=== PATIENT | male | born 1970 | race Caucasian/White ===

== ENCOUNTER 2017-07-19 13:05 | Emergency (ER) | payer OTHER ==
[~2017-07-19] VITALS: Ht 177.8 cm; Wt 104.3 kg
[~2017-07-19 13:05] MED LIST: ACYCLOVIR 400400 M1 PO; AMOXIL 875 MG875 M1 PO; AUGMENTIN 875875 M1 PO; AUGMENTIN 875875 MG PO; BACTRIM DS TAB1 EACH PO; DOXYCYCLINE 10100 M1 PO; FLOXIN OTI0.3 %/5 M1 OT; LISINOPRIL20 MG PO; MUPIROCIN TOP; NOHOMEMEDICATIONS; NORCO 5-325 TA1 EACH PO; OSELB75 PO; PERCOCET 7.5-31 EACH; PRINIVIL20 MG PO; ZOFRAN4 MG PO
[2017-07-19 13:52] LABS: HEMATOCRIT 46.7 % (42.0-52.0); MCH 33.3 pg (26.0-34.0); MCHC 34.2 g/dL (28.0-37.0); MCV 97.5 fL (80.0-100.0); NUCLEATED RBCS 0 /100WBC; PLATELET COUNT* 171 thou/uL (150-400); RBC 4.79 mil/uL (4.50-6.00); RDW-CV 14.3 % (10.5-14.5)
[2017-07-19 13:59] LABS: ANION GAP 15 mmol/L (7-16); BUN 25 mg/dL (7-18); CALCIUM 9.2 mg/dL (8.5-10.1); CHLORIDE 98 mmol/L (98-107); CO2 21 mmol/L (21-32); CREATININE 1.7 mg/dL (0.6-1.3); GLUCOSE 101 mg/dL (70-99); POTASSIUM 4.3 mmol/L (3.5-5.1); SODIUM 134 mmol/L (136-145)
[2017-07-19 14:10] LABS: ALBUMIN 4.1 g/dL (3.4-5.0); ALKALINE PHOSPHATASE 103 U/L (46-116); LIPASE 135 U/L (73-393); SGOT 36 U/L (15-37); SGPT 56 U/L (30-65); TOTAL BILIRUBIN 0.7 mg/dL (<0.1-1.0); TOTAL PROTEIN 8.2 g/dL (6.4-8.2); TROPONIN-I LEVEL <0.06 ng/mL (<0.06)
[2017-07-19 15:06] LABS: URINE BILIRUBIN NEGATIVE (Negative); URINE BLOOD TRACE (Negative); URINE CLARITY CLEAR; URINE COLOR YELLOW; URINE GLUCOSE-RANDOM NEGATIVE (Negative); URINE KETONES NEGATIVE (Negative); URINE LEUKOCYTES-REFLEX NEGATIVE (Negative); URINE NITRITE-REFLEX NEGATIVE (Negative); URINE PROTEIN 2+ (Negative); URINE SPECIFIC GRAVITY 1.025 (1.005-1.030); URINE UROBILINOGEN 0.2 E.U./dl (0.2-1.0)
[2017-07-19 15:14] LABS: AMP/METHAMP Negative (Negative); BARBITURATES Negative (Negative); BENZODIAZEPINES Negative (Negative); COCAINE Negative (Negative); METHADONE Negative (Negative); OPIATES Negative (Negative); PCP Negative (Negative); THC POSITIVE (Negative)
[2017-07-19 15:14] LABS: ABSOLUTE LYMPHOCYTES 0.2 thou/uL (0.8-5.3); ABSOLUTE MONOCYTES 0.1 thou/uL (0.0-1.2); ABSOLUTE NEUTROPHILS 7.8 thou/uL (1.6-8.1)
[2017-07-19 15:17] LABS: MACROCYTES Occasional; PLATELET ESTIMATE ADEQUATE
[2017-07-19 15:19] LABS: POLYCHROMASIA Occasional
[2017-07-19 15:21] LABS: BACTERIA-REFLEX None Seen /HPF (None Seen); CASTS None Seen /LPF (None Seen); SQUAMOUS 4-10 Moderate /LPF (0-3); URINE RBC 0-2 Rare /HPF (0-2)
[2017-07-19 15:22] LABS: CRYSTALS None Seen /LPF (None Seen); URINE WBC-REFLEX 0-5 Rare /HPF (0-5)
--- NOTE | 2017-07-19 15:31 | EKG ---
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
[2017-07-19 16:56] VITALS: BP 147/102
== END 2017-07-19 15:36 | disposition home or self-care (01) ==
LOC: M.ERS 13:05
PROVIDERS: Physician Assistant
DX: I10 Essential (primary) hypertension (principal); R50.9 Fever, unspecified; R94.2 Abnormal results of pulmonary function studies; F17.210 Nicotine dependence, cigarettes, uncomplicated; Z98.890 Other specified postprocedural states; Z85.47 Personal history of malignant neoplasm of testis

== ENCOUNTER 2018-02-03 07:02 | Inpatient (IN) | payer OTHER ==
[~2018-02-03] VITALS: Ht 177.8 cm; Wt 108.9 kg
[2018-02-03 07:15] VITALS: BP 167/106
[2018-02-03] MEDS ORDERED: SPIRONOLACTONE25 MG PO (07:19)
[2018-02-03] MEDS ORDERED: BLOOD PRESSURE MED (07:20)
[2018-02-03 07:29] LABS: URINE BILIRUBIN NEGATIVE (Negative); URINE BLOOD 1+ (Negative); URINE CLARITY CLEAR; URINE COLOR YELLOW; URINE GLUCOSE-RANDOM NEGATIVE (Negative); URINE KETONES NEGATIVE (Negative); URINE LEUKOCYTES-REFLEX NEGATIVE (Negative); URINE PROTEIN 2+ (Negative); URINE SPECIFIC GRAVITY 1.025 (1.005-1.030); URINE UROBILINOGEN 0.2 E.U./dl (0.2-1.0)
[2018-02-03 07:30] LABS: URINE NITRITE-REFLEX POSITIVE (Negative)
[2018-02-03 07:34] LABS: BACTERIA-REFLEX >30 Many /HPF (None Seen); SQUAMOUS 0-3 Few /LPF (0-3); URINE RBC 3-10 Few /HPF (0-2); URINE WBC-REFLEX 6-15 Few /HPF (0-5)
[2018-02-03 07:35] LABS: CASTS None Seen /LPF (None Seen); CRYSTALS None Seen /LPF (None Seen); MUCUS None Seen strn/LPF (None Seen)
[2018-02-03 07:54] LABS: HEMATOCRIT 42.6 % (42.0-52.0); HEMOGLOBIN 14.8 gm/dL (14.0-18.0); MCH 33.2 pg (26.0-34.0); MCHC 34.7 g/dL (28.0-37.0); MCV 95.7 fL (80.0-100.0); MPV 6.8 fl. (7.2-11.1); NUCLEATED RBCS 0 /100WBC; PLATELET COUNT* 192 thou/uL (150-400); RBC 4.45 mil/uL (4.50-6.00); RDW-CV 14.1 % (10.5-14.5); WBC 7.2 thou/uL (4.0-11.0)
[2018-02-03 07:59] LABS: ANION GAP 14 mmol/L (7-16); BUN 15 mg/dL (7-18); CALCIUM 8.9 mg/dL (8.5-10.1); CHLORIDE 98 mmol/L (98-107); CO2 21 mmol/L (21-32); CREATININE 1.7 mg/dL (0.6-1.3); GLUCOSE 148 mg/dL (70-99); POTASSIUM 3.8 mmol/L (3.5-5.1); SODIUM 133 mmol/L (136-145)
[2018-02-03 08:12] LABS: ALBUMIN 3.2 g/dL (3.4-5.0); ALKALINE PHOSPHATASE 107 U/L (46-116); LIPASE 182 U/L (73-393); SGOT 32 U/L (15-37); SGPT 48 U/L (30-65); TOTAL BILIRUBIN 0.4 mg/dL (<0.1-1.0); TOTAL PROTEIN 7.1 g/dL (6.4-8.2); TROPONIN-I LEVEL <0.06 ng/mL (<0.06)
[2018-02-03 08:19] LABS: INFLUENZA A ANTIGEN None Detected (None Detect); INFLUENZA B ANTIGEN None Detected (None Detect)
[2018-02-03 08:38] LABS: ABSOLUTE EOSINOPHILS 0.1 thou/uL (0.0-0.7); ABSOLUTE LYMPHOCYTES 0.2 thou/uL (0.8-5.3); ABSOLUTE NEUTROPHILS 6.8 thou/uL (1.6-8.1); PLATELET ESTIMATE ADEQUATE
[2018-02-03 09:44] VITALS: BP 148/89
[2018-02-03 10:00] VITALS: BP 136/93
[2018-02-03] MEDS ORDERED: NORVASC10 MG PO (12:00)
[2018-02-03] MEDS ORDERED: CARDURA2 MG PO (12:00)
[2018-02-03 15:35] VITALS: BP 147/95
[2018-02-03 20:00] VITALS: BP 109/56; BP 138/91
[2018-02-03 22:00] LABS: AMP/METHAMP Negative (Negative); BARBITURATES Negative (Negative); BENZODIAZEPINES Negative (Negative); COCAINE Negative (Negative); METHADONE Negative (Negative); OPIATES Negative (Negative); PCP Negative (Negative); THC POSITIVE (Negative)
[2018-02-04 04:08] LABS: HEMATOCRIT 39.9 % (42.0-52.0); HEMOGLOBIN 13.7 gm/dL (14.0-18.0); MCH 33.5 pg (26.0-34.0); MCHC 34.3 g/dL (28.0-37.0); MCV 97.6 fL (80.0-100.0); MPV 7.5 fl. (7.2-11.1); RBC 4.08 mil/uL (4.50-6.00); RDW-CV 14.6 % (10.5-14.5); WBC 9.2 thou/uL (4.0-11.0)
[2018-02-04 04:30] LABS: ALBUMIN 2.7 g/dL (3.4-5.0); CALCIUM 8.1 mg/dL (8.5-10.1); CREATININE 1.5 mg/dL (0.6-1.3); MAGNESIUM 1.4 mg/dL (1.8-2.4); POTASSIUM 3.9 mmol/L (3.5-5.1); TOTAL BILIRUBIN 0.7 mg/dL (<0.1-1.0); TOTAL PROTEIN 5.9 g/dL (6.4-8.2)
[2018-02-04 09:00] VITALS: BP 117/89
--- NOTE | 2018-02-04 14:49 | EKG ---
[place] [address] ELECTROCARDIOGRAM REPORT Name: SARA CHAVEZ Room: [address] ADM IN M.R.#: [id number] Admission: 02/03/18 Attend Phys: Vera Grissom MD Discharge: Date of : 72 Report #: [id number] THIS REPORT FOR: //name// [facility] ED Test Date: 2018-02-03 Test Time: 07:30:10 Pat Name: SARA CHAVEZ Department: Room: [facility] Gender: M Director Life: Savana THOMAS : 1970 Requested By: Cachorro Heath Order Number: [id number] MD: Ta Freire Measurements Intervals [place] Rate: 139 P: 0 HI: 138 QRS: 48 QRSD: 85 T: 22 QT: 276 QTc: 420 Interpretive Statements Sinus tachycardia Abnormal R-wave progression, late transition Minimal ST elevation, lateral leads Compared to ECG 07/19/2017 13:21:47 ST (T wave) deviation now present Electronically Signed On 02-04-2018 14:49:41 PURCHASING ASSISTANT by Ta Freire [email or web address] <ELECTRONICALLY SIGNED> By: Ta Freire MD, [facility] 02/04/18 1449 0730 0730 Ta Freire MD, [facility] /EPI
--- NOTE | 2018-02-04 14:54 | EKG ---
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
[2018-02-04 16:36] VITALS: BP 112/61
[2018-02-04 20:20] VITALS: BP 128/78
[2018-02-05 05:26] LABS: HEMATOCRIT 40.1 % (42.0-52.0); HEMOGLOBIN 13.7 gm/dL (14.0-18.0); MCH 33.6 pg (26.0-34.0); MCHC 34.2 g/dL (28.0-37.0); MCV 98.2 fL (80.0-100.0); MPV 7.8 fl. (7.2-11.1); RBC 4.08 mil/uL (4.50-6.00); RDW-CV 14.1 % (10.5-14.5)
[2018-02-05 05:34] LABS: ALBUMIN 2.8 g/dL (3.4-5.0); CALCIUM 8.5 mg/dL (8.5-10.1); CREATININE 1.5 mg/dL (0.6-1.3); POTASSIUM 3.4 mmol/L (3.5-5.1); TOTAL BILIRUBIN 0.3 mg/dL (<0.1-1.0); TOTAL PROTEIN 6.8 g/dL (6.4-8.2)
[2018-02-05 09:00] VITALS: BP 130/88
[2018-02-05] MEDS ORDERED: MACROBID 100 M100 M2 PO (09:32)
[2018-02-05] MEDS ORDERED: LISINOPRIL20 MG PO (09:34)
[2018-02-05 11:39] VITALS: BP 130/88
[2018-02-05] MEDS ORDERED: NICOTINE PATCH1 EAC2 TRANSDERM (12:01)
[2018-02-05] MEDS ORDERED: ENOXAPARIN40 MG/0.1 SUBQ (12:02)
[2018-02-05] MEDS ORDERED: LEVSIN0.125 MG PO (12:05)
[2018-02-08 04:09] LABS: ADENOVIRUS Negative (Negative); INFLUENZA A Negative (Negative); INFLUENZA B Negative (Negative); METAPNEUMOVIRUS Negative (Negative); PARAINFLUENZA 1 Negative (Negative); PARAINFLUENZA 2 Negative (Negative); PARAINFLUENZA 3 Negative (Negative); RHINOVIRUS Negative (Negative); RSV A Negative (Negative); RSV B Negative (Negative)
== END 2018-02-05 12:25 | disposition home or self-care (01) | DRG 682 ==
LOC: M.ERS 07:02 → M.TBA-ER 08:49 → M.3W 08:49
PROVIDERS: Emergency Medicine Emergency Medical Services; ADMIT Internal Medicine
DX: N17.9 Acute kidney failure, unspecified (principal); R65.11 Systemic inflammatory response syndrome (SIRS) of non-infectious origin with acute organ dysfunction; N39.0 Urinary tract infection, site not specified; Z94.81 Bone marrow transplant status; E44.1 Mild protein-calorie malnutrition; I10 Essential (primary) hypertension; F17.210 Nicotine dependence, cigarettes, uncomplicated; R00.0 Tachycardia, unspecified; Z79.899 Other long term (current) drug therapy; Z23 Encounter for immunization; Z95.0 Presence of cardiac pacemaker; Z85.47 Personal history of malignant neoplasm of testis; Z68.34 Body mass index [BMI] 34.0-34.9, adult

== ENCOUNTER 2019-08-10 03:14 | Emergency (ER) | payer OTHER ==
[~2019-08-10] VITALS: Ht 180.3 cm; Wt 104.3 kg
[~2019-08-10 03:14] MED LIST changes: +BLOOD PRESSURE MED; +CARDURA2 MG PO; +ENOXAPARIN40 MG/0.1 SUBQ; +LEVSIN0.125 MG PO; +MACROBID 100 M100 M2 PO; +NICOTINE PATCH1 EAC2 TRANSDERM; +NORVASC10 MG PO; +SPIRONOLACTONE25 MG PO
[2019-08-10 04:19] LABS: BE -4.4 mmol/L (-2 to +3); PCO2 28.3 mmHg (35.0-45.0); pH 7.431 (7.340-7.450)
[2019-08-10 04:20] LABS: PO2 146.6 mmHg (75.0-100.0)
[2019-08-10 04:31] LABS: HEMATOCRIT 41.2 % (42.0-52.0); HEMOGLOBIN 14.5 gm/dL (14.0-18.0); MCH 34.5 pg (26.0-34.0); MCHC 35.1 g/dL (28.0-37.0); MCV 98.2 fL (80.0-100.0); NUCLEATED RBCS 0 /100WBC; PLATELET COUNT* 136 thou/uL (150-400); RBC 4.19 mil/uL (4.50-6.00); RDW-CV 13.8 % (10.5-14.5)
[2019-08-10 04:52] LABS: ALBUMIN 3.1 g/dL (3.4-5.0); CALCIUM 7.9 mg/dL (8.5-10.1); CREATININE 1.6 mg/dL (0.6-1.3); MAGNESIUM 1.5 mg/dL (1.8-2.4); POTASSIUM 3.5 mmol/L (3.5-5.1); TOTAL BILIRUBIN 0.6 mg/dL (<0.1-1.0); TOTAL PROTEIN 6.7 g/dL (6.4-8.2)
[2019-08-10 05:58] LABS: URINE BILIRUBIN NEGATIVE (Negative); URINE BLOOD 2+ (Negative); URINE CLARITY SL CLOUDY; URINE COLOR YELLOW; URINE GLUCOSE-RANDOM NEGATIVE (Negative); URINE KETONES NEGATIVE (Negative); URINE LEUKOCYTES-REFLEX 1+ (Negative); URINE NITRITE-REFLEX NEGATIVE (Negative); URINE PROTEIN 2+ (Negative); URINE SPECIFIC GRAVITY >= 1.030 (1.005-1.030); URINE UROBILINOGEN 0.2 E.U./dl (0.2-1.0)
[2019-08-10 06:19] LABS: BACTERIA-REFLEX >30 Many /HPF (None Seen); CASTS None Seen /LPF (None Seen); CRYSTALS None Seen /LPF (None Seen); MUCUS 0-3 Light strn/LPF (None Seen); SQUAMOUS 0-3 Few /LPF (0-3); URINE RBC 0-2 Rare /HPF (0-2); URINE WBC-REFLEX 6-15 Few /HPF (0-5)
[2019-08-10 06:21] LABS: ABSOLUTE LYMPHOCYTES 0.7 thou/uL (0.8-5.3); ABSOLUTE MONOCYTES 0.2 thou/uL (0.0-1.2); ABSOLUTE NEUTROPHILS 7.1 thou/uL (1.6-8.1); PLATELET ESTIMATE DECREASED
[2019-08-10] MEDS ORDERED: ZPAK PO (06:32)
[2019-08-10 06:39] VITALS: BP 131/74
== END 2019-08-10 06:41 | disposition home or self-care (01) ==
LOC: M.ERS 03:14
PROVIDERS: Personal Emergency Response Attendant
DX: J06.9 Acute upper respiratory infection, unspecified (principal); Z20.828 Contact with and (suspected) exposure to other viral communicable diseases; R19.7 Diarrhea, unspecified; I10 Essential (primary) hypertension; F17.210 Nicotine dependence, cigarettes, uncomplicated

== ENCOUNTER 2020-04-01 15:14 | Inpatient (IN) | payer OTHER ==
[~2020-04-01] VITALS: Ht 180.3 cm; Wt 111.1 kg
--- NOTE | ~2020-04-01 | CON ---
[address] [address] CONSULTATION Name: KATHYSARAUriel VILLAFANA Room: [address] IN M.R.#: [id number] Admission: 04/01/20 Attend Phys: Sadie Burgess MD Discharge: Date of : 72 Report #: [id number] THIS REPORT FOR: cc: Reed Alex Vincent R. DO ~ Adrian Mayo MD [facility] DATE OF SERVICE: 04/01/2020 CARDIOLOGY CONSULT INDICATION Defibrillator shock. HISTORY OF PRESENT ILLNESS: The patient is a very pleasant 49-year-old gentleman, who has a history of a nonischemic cardiomyopathy. He is status post ICD placement for secondary prevention approximately 6 years ago. The patient reports he was in the hospital for hernia surgery when he had an episode that sounds like cardiac arrest. He had ICD placed shortly thereafter. The patient states that he was using the restroom at the time and felt a sudden discharge, which knocked him from the toilet seat. He has not had a shock from his defibrillator prior to this. The patient is found to have mild hyperkalemia without other significant abnormality in the Emergency Room. EKG shows sinus rhythm in the Emergency Room. Interrogation of his defibrillator shows a sustained rapid arrhythmia that I suspect is paroxysmal atrial fibrillation with rapid ventricular response rate. The defibrillator attempted to pace the patient out of rhythm 5 times was subsequently followed by a shock, which converted him to sinus rhythm. Subsequent to this, the patient regained consciousness without any type of post-episode issues. He denied any significant chest pain or shortness of breath. In fact, he was not having even palpitations at the time. PAST MEDICAL HISTORY: 1. Nonischemic cardiomyopathy, details unknown. 2. Paroxysmal atrial fibrillation with planned ablation in the near future. 3. Status post ICD placement for secondary prevention. SOCIAL HISTORY: The patient smokes a pack of cigarettes daily. Drinks alcohol occasionally. FAMILY HISTORY: Noncontributory. HOME MEDICATION LIST: Not current. Office visit from today lists his home medications as amlodipine 10 mg daily, atorvastatin 40 mg daily, Keflex 50 mg b.i.d. for 7 days, Zyrtec 10 mg daily, Cardura 2 mg daily, lisinopril 20 mg daily, prednisone 20 mg 4 times a day, Eliquis 5 [place] [address] CONSULTATION Name: SARA CHAVEZ Room: [address]#: [id number] Admission: 04/01/20 Attend Phys: Sadie Burgess MD Discharge: Date of : 72 Report #: [id number] REVIEW OF SYSTEMS: A 14-point review of systems as per HPI, otherwise unremarkable. PHYSICAL EXAMINATION: VITAL SIGNS: Blood pressure 112/74, pulse rate is 78 and regular. GENERAL: This is a mildly obese, pleasant gentleman, in no distress. Mood and affect appropriate. HEENT: Extraocular muscles intact. Mucous membranes are moist. NECK: Shows no jugular venous distention. CHEST: Reveals clear lung sunshine without wheezes or rales. CARDIAC: Reveals a regular rhythm with normal S1, S2. I do not appreciate gallop or murmur. ABDOMEN: Reveals a protuberant abdomen, soft and nontender. EXTREMITIES: Shows no edema. Peripheral pulses 2+ and palpable. RADIOLOGICAL DATA: A 12-lead EKG shows sinus rhythm without acute ST or T-wave abnormality. LABORATORY DATA: Reviewed. Sodium 137, potassium 5.5, chloride 105, bicarb 21, BUN 35, creatinine 1.8, serum glucose 166. White blood cell count 9.5; hemoglobin 14.1; platelet count 153,000. Chest x-ray shows no acute cardiopulmonary abnormality. IMPRESSION AND RECOMMENDATIONS: 1. Discharge of defibrillator after an episode of paroxysmal atrial fibrillation with rapid ventricular response rate. The patient is now in sinus rhythm. Defibrillator interrogation today shows normal functioning. 2. Nonischemic cardiomyopathy, presently appears compensated. 3. Paroxysmal atrial fibrillation. There are plans for ablation in the near future. Suspect the patient should remain on anticoagulant until that time. We will consider rate controlling medications until his ablation. 4. Apparent history of dyslipidemia. Continue statin agent. 5. Chronic tobacco abuse. Smoking cessation discussed and advised. By: 1734 Orin Mayo MD, FACC /nt
[~2020-04-01 15:14] MED LIST changes: +ZPAK PO
[2020-04-01 15:21] VITALS: BP 149/69
[2020-04-01] MEDS ORDERED: PREDNISONE 5 MG5 M1 PO (15:26)
[2020-04-01 15:42] LABS: HEMATOCRIT 41.6 % (42.0-52.0); HEMOGLOBIN 14.1 gm/dL (14.0-18.0); MCH 33.9 pg (26.0-34.0); MCHC 33.8 g/dL (28.0-37.0); MCV 100.2 fL (80.0-100.0); MPV 6.8 fl. (7.2-11.1); NUCLEATED RBCS 0 /100WBC; PLATELET COUNT* 153 thou/uL (150-400); RBC 4.15 mil/uL (4.50-6.00); RDW-CV 15.2 % (10.5-14.5); WBC 9.5 thou/uL (4.0-11.0)
[2020-04-01 15:52] LABS: CALCIUM 7.7 mg/dL (8.5-10.1); CREATININE 1.8 mg/dL (0.6-1.3)
--- NOTE | 2020-04-01 15:52 | EKG ---
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 04/01/20 1552 1524 1524 Javi Smiley MD, [facility] /EPI
[2020-04-01 15:53] LABS: POTASSIUM 5.5 mmol/L (3.5-5.1)
[2020-04-01 15:55] LABS: APTT 23.6 Seconds (25.0-31.3); PROTIME 11.1 Seconds (9.20-11.50)
[2020-04-01 16:03] LABS: ALBUMIN 3.1 g/dL (3.4-5.0); MAGNESIUM 2.1 mg/dL (1.8-2.4); TOTAL BILIRUBIN 0.7 mg/dL (<0.1-1.0); TOTAL PROTEIN 6.3 g/dL (6.4-8.2)
[2020-04-01 16:19] LABS: ABSOLUTE EOSINOPHILS 0.1 thou/uL (0.0-0.7); ABSOLUTE LYMPHOCYTES 0.6 thou/uL (0.8-5.3); ABSOLUTE MONOCYTES 0.2 thou/uL (0.0-1.2); ABSOLUTE NEUTROPHILS 8.6 thou/uL (1.6-8.1)
[2020-04-01 16:20] LABS: HYPOCHROMASIA 1+; PLATELET ESTIMATE ADEQUATE
[2020-04-01 18:36] VITALS: BP 124/58
[2020-04-01 18:45] VITALS: BP 129/88
[2020-04-01 20:00] VITALS: BP 134/99
[2020-04-01] MEDS ORDERED: ELIQUIS5 MG PO (20:08)
[2020-04-01] MEDS ORDERED: KEFLEX500 M1 PO (20:08)
[2020-04-01] MEDS ORDERED: AMLODIPINE BESY10 MG PO (20:09)
[2020-04-01] MEDS ORDERED: LIPITOR40 MG PO (20:09)
[2020-04-01] MEDS ORDERED: IBUPROFEN 400400 M2 PO (20:11)
--- NOTE | 2020-04-01 20:11 | NUR ---
PT ADMITTED TO ROOM 210 VIA CART FROM ED, REPORT RECEIVED FROM THAD CASEY. PT AOX4, NO C/O PAIN OR SHORTNESS OF BREATH. PT STATES HE HAD PACEMAKER PLACED DURING A HERNIA REPAIR IN WHICH HE FLATLINED AND STATES IT WAS FIRING OFF AND CAUSING HIM CP TODAY. PT UP AD SELVIN, CALL LIGHT W/IN REACH, HOURLY ROUNDING OBSERVED.
[2020-04-02] VITALS (7 sets, daily range): BP systolic 17–118; BP diastolic 62–84
--- NOTE | 2020-04-02 04:10 | NUR ---
ASSUMED PT CARE AT APPROX 1900. PT IS AWAKE AND ORIENTED X4. 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 PT IS NOT IN DISTRESS, NO DESATURATIONS NOTED ON ROOM AIR. PT DENIES CHEST PAIN/DISCOMFORT. NO ACUTE CHANGES OF THIS TIME. CALL LIGHT WITHIN REACH. HOURLY ROUNDING DONE FOR PT SAFETY. FALL PRECAUTIONS IN PLACE.
[2020-04-02 05:05] LABS: HEMATOCRIT 37.8 % (42.0-52.0); HEMOGLOBIN 12.6 gm/dL (14.0-18.0); MCH 33.1 pg (26.0-34.0); MCHC 33.3 g/dL (28.0-37.0); MCV 99.5 fL (80.0-100.0); MPV 6.8 fl. (7.2-11.1); RBC 3.8 mil/uL (4.50-6.00); RDW-CV 15.1 % (10.5-14.5); WBC 9.9 thou/uL (4.0-11.0)
[2020-04-02 05:21] LABS: CALCIUM 7.6 mg/dL (8.5-10.1); CREATININE 1.7 mg/dL (0.6-1.3)
[2020-04-02 05:23] LABS: POTASSIUM 4.5 mmol/L (3.5-5.1)
--- NOTE | 2020-04-02 13:45 | 2DMMODE ---
[place] [address] 2 D/M-MODE ECHOCARDIOGRAM Name: SARA CHAVEZ Room: [address] IN .R.#: [id number] Admission: 04/01/20 Attend Phys: Sadie Burgess MD Discharge: Date of : 72 Date of Service: 04/02/20 1344 Report #: [id number] THIS REPORT FOR: cc: Reed Alex,Adrian Padilla MD [facility] ~ ADDENDUM APPROVED REPORT Study performed: 04/02/2020 10:00:42 EXAM: Comprehensive 2D, Doppler, and color-flow Echocardiogram Patient Location: In-Patient Room #: [facility] Status: routine BSA: 2.29 HR: 97 bpm BP: 117/84 mmHg Rhythm: NSR Other Information Study Quality: Good Indications Atrial Fibrillation 2D Dimensions IVSd: 11.94 (7-11mm) LVOT Diam: 21.75 (18-24mm) LVDd: 44.99 mm PWd: 10.08 (7-11mm) Ascending Ao: 40.52 (22-36mm) LVDs: 26.30 (25-40mm) Aortic Root: 42.14 mm Volumes Left Atrial Volume (Systole) LA ESV Index: 27.20 mL/m2 Aortic Valve AoV Peak Wyatt.: 1.91 m/s AO Peak Gr.: 14.63 mmHg LVOT Max P.34 mmHg AO Mean Gr.: 8.45 mmHg LVOT Mean P.81 mmHg LVOT Max V: 1.53 m/s AO V2 VTI: 30.20 cm LVOT Mean V: 0.87 m/s DIANNE (VTI): 3.18 cm2 LVOT V1 VTI: 25.83 [place] [address] 2 D/M-MODE ECHOCARDIOGRAM Name: SARA CHAVEZ Room: [address] IN ..#: [id number] Admission: 04/01/20 Attend Phys: Sadie Burgess MD Discharge: Date of : 72 Date of Service: 04/02/20 1344 Report #: [id number] Mitral Valve E/A Ratio: 1.16 MV Decel. Time: 282.45 ms MV E Max Wyatt.: 0.77 m/s MV PHT: 81.91 ms MVA (PHT): 2.69 cm2 TDI E/Lateral E': 5.92 E/Medial E': 7.70 Medial E' Wyatt.: 0.10 m/s Lateral E' Wyatt.: 0.13 m/s Pulmonary Valve PV Peak Wyatt.: 1.36 m/s PV Peak Gr.: 7.40 mmHg Left Ventricle The left ventricle is normal size. There is normal LV segmental wall motion. There is normal left ventricular wall thickness. Left ventricular systolic function is normal. LVEF is 60-65%. Transmitral Doppler flow pattern suggests impaired LV relaxation. Right Ventricle The right ventricle is normal size. The right ventricular systolic function is normal. Pacemaker lead is present in the right ventricle. Atria The left atrium size is normal. The right atrium size is normal. Aortic Valve The aortic valve is normal in structure. No aortic regurgitation is present. There is no aortic valvular stenosis. Mitral Valve The mitral valve is normal in structure. There is no mitral valve regurgitation noted. No evidence of mitral valve stenosis. Tricuspid Valve The tricuspid valve is normal in structure. Unable to assess PA pressure. Trace tricuspid regurgitation. Pulmonic Valve The pulmonary valve is normal in structure. There is no pulmonic valvular regurgitation[place] [address] 2 D/M-MODE ECHOCARDIOGRAM Name: SARA CHAVEZ Room: [address] IN [facility]#: [id number] Admission: 04/01/20 Attend Phys: Sadie Burgess MD Discharge: Date of : 72 Date of Service: 04/02/20 1344 Report #: [id number] Aortic root is mildly dilated. IVC is normal in size and collapses >50% with inspiration. Pericardium There is no pericardial effusion. <Conclusion> The left ventricle is normal size. There is normal left ventricular wall thickness. Left ventricular systolic function is normal. LVEF is 60-65%. Transmitral Doppler flow pattern suggests impaired LV relaxation. Pacemaker lead is present in the right ventricle. IVC is normal in size and collapses >50% with inspiration. Aortic root is mildly dilated. <ELECTRONICALLY SIGNED> By: Adrian Mayo MD, FACC 04/02/20 1344 1344 1344 Adrian Mayo MD, FACC /INF
[2020-04-02] MEDS ORDERED: CARDIZEM CD120 MG PO (14:47)
--- NOTE | 2020-04-02 15:52 | NUR ---
CM COMPLETED AN INITIAL ASSESSMENT TO DISCUSS D/C PLANNING. PT IS A&OX4. PT IS ACTIVE AND INDEPENDENT W/CARES. PT DRIVES AND LIVES HOME W/A ROOMMATE. PT HAS 0 DMES, NO HX W/HH OR SNF. NO ANTICIPATED CM NEED.
--- NOTE | 2020-04-02 15:55 | NUR ---
PT ROUNDS: PT HAD ICD INTEROGATED AND ECHO TODAY.
== END 2020-04-02 19:55 | disposition home or self-care (01) | DRG 315 ==
LOC: M.ERS 15:14 → M.2W 16:30 → M.TBA-ER 16:30 → M.2W 18:54
PROVIDERS: Emergency Medicine Emergency Medical Services; ADMIT Family Medicine; ATTEND Family Medicine
PROC: 4B02XTZ Measurement of Cardiac Defibrillator, External Approach (ICD-10-PCS; principal; 2020-04-02)
DX: T82.198A Other mechanical complication of other cardiac electronic device, initial encounter (principal); I42.8 Other cardiomyopathies; N17.9 Acute kidney failure, unspecified; N39.0 Urinary tract infection, site not specified; I48.20 Chronic atrial fibrillation, unspecified; I10 Essential (primary) hypertension; E87.5 Hyperkalemia; I48.0 Paroxysmal atrial fibrillation; F17.210 Nicotine dependence, cigarettes, uncomplicated; E78.5 Hyperlipidemia, unspecified; Y83.8 Other surgical procedures as the cause of abnormal reaction of the patient, or of later complication, without mention of misadventure at the time of the procedure; Z20.822 Contact with and (suspected) exposure to COVID-19; Y92.89 Other specified places as the place of occurrence of the external cause; Z79.899 Other long term (current) drug therapy